=== PATIENT | female | born 1965 | race African-American/Black ===

== ENCOUNTER 2016-08-30 15:29 | Emergency (ER) | payer OTHER ==
[2016-08-30 15:39] VITALS: BP 156/88; TEMP 99.2; BMI 43.5
[2016-08-30 16:22] LABS: URINE APPEARANCE CLEAR; URINE BILIRUBIN NEGATIVE (NEGATIVE); URINE BLOOD NEGATIVE (NEGATIVE); URINE COLOR YELLOW; URINE GLUCOSE (UA) NEGATIVE (NEGATIVE); URINE KETONE NEGATIVE (NEGATIVE); URINE NITRITE NEGATIVE (NEGATIVE); URINE PROTEIN NEGATIVE (NEGATIVE); URINE UROBILINOGEN 4.0 E.U/dl E.U./dl (0.2-1.0)
[2016-08-30 16:29] LABS: URINE LEUK ESTERASE TRACE (NEGATIVE)
[2016-08-30 16:30] LABS: URINE HYALINE CAST 2 /lpf; URINE MUCUS MANY; URINE RBC 4 /hpf (0-3); URINE WBC 4 /hpf (3-5)
--- NOTE | 2016-08-30 16:30 | PDOC ---
History of Present Illness - General Chief Complaint: Cold Symptoms Stated Complaint: PAIN/ ABD, SIDE, BACK Time Seen by Provider: 08/30/16 15:36 History Source: Patient - History of Present Illness Timing/Duration: reports: constant Quality: reports: severe Abdominal Pain Onset Location: reports: flank Past History - Past Medical History Allergies/Adverse Reactions: Allergies Allergy/AdvReac Type Severity Reaction Status Date / Time No Known Allergies Allergy Verified 08/30/16 15:39 Home Medications: Ambulatory Orders NK [No Known Home Medication] 08/30/16 - Psycho/Social/Smoking Cessation Hx Suicidal Ideation: No Smoking History: Never smoked Information on smoking cessation initiated: No Hx Alcohol Use: No Drug/Substance Use Hx: No Review of Systems - Review of Systems Constitutional: No: Chills, Fever HEENTM: Yes: Nose Congestion Respiratory: Yes: Cough : Yes: Flank Pain. No: Burning, Dysuria, Discharge, Frequency, Hematuria *Physical Exam - Vital Signs Last Vital Signs Temp Pulse Resp BP Pulse Ox 99.2 F 125 H 20 156/88 94 L 08/30/16 15:36 08/30/16 15:36 08/30/16 15:36 08/30/16 15:36 08/30/16 15:36 - Physical Exam General Appearance: Yes: Appropriately Dressed. No: Apparent Distress HEENT: positive: Normal Voice Neck: positive: Supple Respiratory/Chest: negative: Respiratory Distress Gastrointestinal/Abdominal: positive: Tender (to L flank/suprapubic area), Soft Musculoskeletal: positive: CVA Tenderness, CVA Tenderness (L) Extremity: positive: Normal Inspection Integumentary: positive: Dry, Warm Neurologic: positive: Fully Oriented, Alert, Normal Mood/Affect Medical Decision Making - Medical Decision Making 08/30/16 16:27 51-year-old female denies any past medical history here with sudden onset left flank pain that started today. States she currently has "a cold" and that whenever she coughs the pain get worse. Denies dysuria, hematuria, urinary frequency, nausea, vomiting, fever or chills. No h/o renal stone. No abnormal vaginal discharge. Is sexually active See exam L flank pain today Worse w/ cough, currently has uri No h/o renal stone Well ray w/ HR of 125 and O2 sat of 94 at triage that improved to HR of 107 and 100 %sats on RA w/ no intervention Had ?L CVAT, abd benign otherwise R/o uti/pyelo, ? stone -pain control -ua/cx -?CT 08/30/16 16:57 Ua neg. Pt continues to appear well. Pain possible muscular in etiology. Unlikely stone as pt in NAD and no n/v or dysuria but CT offered to pt who declines today. States she will watch and wait and if sxs persists/worsens will come back to ED for further w/u *DC/Admit/Observation/Transfer Diagnosis at time of Disposition: Flank pain - Discharge Dispostion Disposition: HOME Condition at time of disposition: Good - Patient Instructions Printed Discharge Instructions: DI for Flank Pain Additional Instructions: The cause of your symptoms are unclear today, though it is possible that your pain is muscular in source. Take Motrin as needed for pain, but if pain persist and or worsens, return to the ER and at that time we send you for a CAT scan
[2016-08-30] MEDS ORDERED: IBUPROFEN 400 MG TABLET (FP) PO ONE ×2 (16:51→16:53)
[2016-08-30 17:03] VITALS: PULSE 107
== END 2016-08-30 16:57 | disposition home or self-care (01) ==
LOC: JERFT 15:29
DX: R10.32 Left lower quadrant pain (principal)
CPT/HCPCS: 81003; 81015; 84703; 87086; 99281-25